=== PATIENT | female | born 1975 | race Caucasian/White ===

== ENCOUNTER → 2020-03-10 | Outpatient (CLI) | payer OTHER ==
--- NOTE | 2020-03-10 14:43 | KCIC ---
EXAMINATION: Magnetic resonance imaging (MRI) of the cervical spine without contrast 03/10/2020 1:15 PM HISTORY: Brachial neuritis. Right shoulder pain in right upper extremity numbness TECHNIQUE: Multiplanar multi-weighted MRI of the cervical spine was performed without intravenous contrast using the standard cervical spine protocol. Contrast information: None administered COMPARISON: None available. FINDINGS: Minimal retrolisthesis of C4 on C5. Vertebral bodies demonstrate normal signal intensity on all sequences. No acute fracture is identified; however, if trauma is suspected, a CT scan would be a more sensitive examination for fractures. The craniocervical junction is normal. The visualized portions of the skull base and the posterior fossa are normal. The spinal cord demonstrates normal signal intensity on all sequences. There is disc desiccation at all levels of the cervical spine with mild disc height loss at C4-C5. No soft tissue abnormality is identified. Normal signal voids are present in the vertebral arteries. C2-C3: The disk is normal in configuration. There is no facet arthropathy. There is no uncovertebral joint disease. There is no neuroforaminal stenosis. There is no spinal canal stenosis. C3-C4: The disk is normal in configuration. There is no facet arthropathy. There is no uncovertebral joint disease. There is no neuroforaminal stenosis. There is no spinal canal stenosis. C4-C5: There is a posterior disc osteophyte complex. Mild facet arthropathy. Mild uncovertebral joint disease. No neuroforaminal or spinal canal stenosis. C5-C6: Mild disc bulge. No significant facet arthropathy. No uncovertebral joint disease. No neuroforaminal or spinal canal stenosis. C6-C7: There is a posterior disc osteophyte complex asymmetric to the right with right central disc protrusion. There is no facet arthropathy. There is mild uncovertebral joint disease. There is mild neuroforaminal stenosis. There is no spinal canal stenosis. C7-T1: The disk is normal in configuration. There is no facet arthropathy. There is no uncovertebral joint disease. There is no neuroforaminal stenosis. There is no spinal canal stenosis. IMPRESSION: Mild degenerative changes of the cervical spine as described in detail above. Electronically signed by: Tiffany Saleh MD (03/10/2020 2:40 PM) [facility]
== END ==
LOC: KCIC MRI 12:56
PROVIDERS: ATTEND Physician Assistant
DX: M47.22 Other spondylosis with radiculopathy, cervical region (principal); M43.12 Spondylolisthesis, cervical region
CPT/HCPCS: 72141

== ENCOUNTER → 2020-05-01 | Outpatient (CLI) | payer OTHER ==
[~2020-05-01] MED LIST: ACET1TAB33 PO; CYCL5TAB PO; IBUP-1007 PO; PANT40TA77 PO; VORT10TA PO
== END ==
LOC: LAB 10:10
PROVIDERS: ATTEND Orthopaedic Surgery
DX: Z01.812 Encounter for preprocedural laboratory examination (principal); Z20.828 Contact with and (suspected) exposure to other viral communicable diseases
CPT/HCPCS: U0003

== ENCOUNTER 2020-05-05 08:41 | Day surgery (SDC) | payer OTHER ==
--- NOTE | 2020-05-03 13:13 | PDOC1 ---
History and Physical Date of Admission Date of Admission 05/05/2020 Identification/Chief Complaint Chief Complaint Right shoulder pain Source Source: Chart review, Patient History of Present Illness History of Present Illness 44-year-old patient here for her right shoulder pain. 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 She describes an onset of shoulder pain after a fall in September when she caught herself with her arm out on a wall. Since then, she has pain holding a gallon of milk, reaching overhead, driving, or sleeping on her side. She locates "burning" pain anteriorly that requires Tylenol, Ibuprofen, or a muscle relaxer to help her sleep. So far, she's had two cortisone injections (at the same visit) with therapy that has helped with mobility but not helped her pain. She is a smoker. The patient has dealt with this for a while now and made significant efforts in physical therapy to try and help alleviate her neck and shoulder pain. She continues to have symptoms in the right arm despite efforts feeling like this is overall not been successful albeit partially improved in her shoulder mobility with therapy. She also has pain in the right shoulder blade, numbness and tingling intermittently in the right upper extremity. Patient fell down back in September from a boat ramp with ontiveros on its surface and caught herself with her RIGHT arm under the axilla on an adjacent wall. She not iced immediate pain in the shoulder and notices a pop with movement. She also reports pain traveling down the arm to the middle and index fingers. 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 She also admits pain in the right side of her cervical spine. She denies history of MVA or trauma to the neck, shoulders. She has woken up routinely with numbness and tingling in the median nerve distribution although this is only been since the time she had her injury. She reports pain in the lateral shoulder as well and on top. She denies any history of prior injury to the upper extremity or previous carpal tunnel symptoms. Past Medical History GI: GERD Past Surgical History Past Surgical History: Cholecystectomy, Hysterectomy Family History Family History: Heart Disease, Hypertension Social History Smoke: <1 pack per day ALCOHOL: occassional Current Medications Current Medications Active Scripts Active Reported Acetaminophen-Cod #3 Tablet (Acetaminophen/Codeine Phosphate) 1 Each Tablet 1 Tab PO PRN Q6HRS PRN Cyclobenzaprine Hcl 5 Mg Tablet 5 Mg PO PRN DAILY PRN Pantoprazole Sodium (Pantoprazole Sodium) 40 Mg Tablet.dr 20 Mg PO DAILYAC Trintellix (Vortioxetine) 10 Mg Tablet 10 Mg PO DAILY Ibuprofen 600 Mg Tablet 600 Mg PO PRN Q6HRS PRN Allergies Allergies: Coded Allergies: Penicillins (Verified Allergy, Unknown, Unknown, 05/02/20) morphine (Verified Adverse Reaction, Intermediate, Nausea and Vomiting, 05/02/20) ROS Review of System Constitutional fevers Denies . CARDIOLOGY: Leg edema none. RESPIRATORY: Shortness of breath denies. GASTROENTEROLOGY: Weight gain denies. MUSCULOSKELETAL: New arthralgias denies. New Myalgias none. Muscle weakness denies. DERMATOLOGY: Rash denies. NEUROLOGY: Paresthesia/numbness denies. ENDOCRINOLOGY: Poor wound healing no. HEMATOLOGY/LYMPH: Abnormal bruising denies. ALLERGY: Positive for hives reported following iodine use as a child has not experienced since. Anaphylaxis denies. Physical Exam General: Alert, Cooperative HEENT: Atraumatic Lungs: Normal air movement Heart: RRR Abdomen: Soft Extremities: No edema, Normal pulses, Other (Gross alignment of the RIGHT shoulder is normal. Tenderness to palpation of the subacromial) Skin: No breakdown, No significant lesion Neuro: Normal tone, Sensation intact Psych/Mental Status: Mental status NL, Mood NL Images Images PROCEDURE: UPPER EXT JOINT WO CONT RIGHT EXAMINATION: MRI RIGHT SHOULDER WITHOUT IV CONTRAST CLINICAL HISTORY: FOOSH injury in September with persistent right shoulder pain and limited range of motion since then, concern for glenoid labrum tear. TECHNIQUE: Multiplanar multisequential images obtained through the shoulder without intravenous contrast. COMPARISON: Right shoulder radiographs 01/30/2020 FINDINGS: TENDONS: - Supraspinatus: Mild to moderate tendinosis without discrete tear. - Infraspinatus: Mild tendinosis without tear. - Subscapularis: Within normal limits. - Teres Minor: Within normal limits. - Biceps Tendon: The long head biceps tendon is intact and appropriately located. MUSCLES: Muscle bulk and signal intensity are within normal limits. LABRUM: Circumferential labral degeneration without discrete tear. GLENOHUMERAL JOINT: - Joint Fluid: No significant joint effusion or synovitis. - Cartilage: No full-thickness chondral defect visualized. ACROMIOCLAVICULAR JOINT: Within normal limits. BONES/MARROW: No evidence of acute fracture or suspicious marrow replacing process. OTHER: Mild thickening of the subacromial/subdeltoid bursa. IMPRESSION: Labral degeneration without discrete tear. Mild to moderate rotator cuff tendinosis without full-thickness tear. Electronically signed by: Aiden Downing DO (02/13/2020 4:32 PM) [id number] DICTATED and SIGNED BY: AIDEN DOWNING DO DATE: 02/13/201631. VTE Prophylaxis Ordered VTE Prophylaxis Devices: Yes VTE Pharmacological Prophylaxi: Yes Assessment/Plan Assessment/Plan Her report details "mild to moderate rotator cuff tendinosis" although I would lean towards classifying this as a partal tear given her MRI and described symptoms with exam. We reviewed her reports together and discussed the natural history of the condition as well as the risks, benefits, and alternatives to treatment. Given her failure of more conservative measures with continued severe pain and loss of function, my recommendation is surgery. Plan for right shoulder arthroscopy with subacromial decompression, open rotator cuff repair, and possible biceps tenodesis. We discussed the potential risks of infection, neurovascular injury, fracture, bleeding, need for revision surgery, or other potential surgical or anesthetic complications. We also discussed healing expectations including postoperative use of DonJoy sling, need for physical therapy, and refrain from overhead lifting for 3 months. I described that this is a more difficult surgery for patients and she may take up to a year to heal; more specifically, I highlighted her increased risks associated with smoking and advised she do her best to stop. All of her questions were answered and she desires to proceed with surgery. She is here today for elective right shoulder arthroscopy, subacromial decompression, likely biceps tenodesis, likely rotator cuff repair, and possible labral debridement. Justifications for Admission Other Justification LAURA CHARLES MD May 03, 2020 13:13
[~2020-05-05 08:41] MED LIST changes: +BUPIVACAINE-EPI 0.25% 30 ML VIAL KIT. INJ ONE; +BUPIVACAINE-EPI 0.25% 30 ML VIAL KIT. ONE; +CLINDAMYCIN 900MG PREMIX 50 ML IV PRN; +EPINEPHrine VIAL 30 MG/30 ML VIAL ONE; +HYDROmorphone 2 MG/ML VIAL IV PRN; +LIDOCAINE 1% PF 2 ML VIAL. ID PRN; +ONDANSETRON PF 4 MG/2 ML VIAL. IV PRN; +PROCHLORPERAZINE 10 MG/2 ML VIAL. IV PRN; +fentaNYL PF VIAL 100 MCG/2 ML VIAL IV PRN
[2020-05-05] MEDS ORDERED: SCOPOLAMINE 1.5MG PATCH. TD ONE (09:00)
[2020-05-05] MEDS ORDERED: ROCURONIUM 50 MG/5 ML VIAL. ONE (09:25)
[2020-05-05] MEDS ORDERED: fentaNYL PF VIAL 100 MCG/2 ML VIAL ONE ×3 (09:25→12:16)
[2020-05-05] MEDS: IV RINGERS,LACTATED 1000ML 1,000 ML IV SCH ×2 (09:30→12:19)
[2020-05-05] MEDS ORDERED: MIDAZOLAM HCL/PF 2 MG/2 ML VIAL. ONE (09:34)
[2020-05-05] MEDS ORDERED: DEXAMETHASONE SOD PHOS 4 MG/ML VIAL ONE (10:06)
[2020-05-05] MEDS ORDERED: ONDANSETRON PF 4 MG/2 ML VIAL. ONE (10:22)
[2020-05-05] MEDS ORDERED: PHENYLEPHRINE in 0.9% NACL PF 1 MG/10 ML SYRINGE. IV ONE (10:22)
[2020-05-05] MEDS ORDERED: PHENYLEPHRINE 10 MG/ML VIAL. ONE (10:49)
[2020-05-05] MEDS ORDERED: GLYCOPYRROLATE 1 MG/5 ML VIAL. ONE (11:23)
[2020-05-05] MEDS ORDERED: NEOSTIGMINE METHYLSULFATE 5 MG/5 ML SYRINGE. ONE (11:23)
--- NOTE | 2020-05-05 11:57 | PDOC4 ---
Operative Note Operative Note Date of Procedure: May 05, 2020 Pre-Op Diagnosis: * Traumatic incomplete tear of right rotator cuff, initial encounter - S46.011A * Impingement syndrome of right shoulder - M75.41 * Biceps tendinosis of right shoulder - M67.813 Post-Op Diagnosis: * Traumatic incomplete tear of right rotator cuff, initial encounter - S46.011A * Impingement syndrome of right shoulder - M75.41 * Biceps tendinosis of right shoulder - M67.813 * Superior glenoid labrum lesion of right shoulder, initial encounter S43.431A Procedure: * Repair of ruptured musculotendinous cuff (rotator cuff) open, acute CPT 32025 * Arthroscopy, shoulder, surgical decompression of subacromial space, with partial acromioplasty CPT 01298 * Arthroscopy, shoulder, surgical debridement, extensive including torn superior labrum (SLAP lesion) and biceps tendon CPT 98721 Surgeon: Laura hCarles MD Option Trader: CLAUDIA Moss Anesthesia: General EBL: 50 mL Specimens Obtained: none Complications: none Drains: none Findings: Severe tendinitis and high-grade partial-thickness tearing of the dis sujata supraspinatus visualized both from the articular and bursal aspects. Minimal bicipital tenosynovitis, amenable to arthroscopic debridement. Impingement syndrome with very tight subacromial space initially, decompressed with arthroscopic subacromial decompression to adequate space available for the cuff and cuff repair. 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 She describes an onset of shoulder pain after a fall in September when she caught herself with her arm out on a wall, slipping on a wet, mossy boat ramp. Since then, she has pain holding a gallon of milk, reaching overhead, driving, or sleeping on her side. She locates "burning" pain anteriorly that requires Tylenol, Ibuprofen, or a muscle relaxer to help her sleep. So far, she's had two cortisone injections and physical therapy that has helped with mobility but not helped her pain. She is a smoker. Given her failure of more conservative measures with continued severe pain and loss of function, my recommendation is surgery. We discussed the potential risks of infection, neurovascular injury, bleeding, stiffness, retear, persistent pain or weakness, need for revision surgery, or other potential surgical or anesthetic complications. We also discussed healing expectations including postoperative use of DonJoy sling, need for physical therapy, and refrain from overhead lifting for 3 months. I described that this is a more difficult surgery than most surgeries, and she may take up to a year to heal. More specifically, I highlighted her increased risks of slow healing, infection or other complications associated with smoking and advised she do her best to stop. All of her questions were answered and she desires to proceed with surgery. She is here today for elective right shoulder arthroscopy, subacromial decompression, likely biceps tenodesis, likely rotator cuff repair, and possible labral debridement. Procedure in Detail: The patient was identified in the preoperative holding area. The correct right shoulder was marked by me. The patient was taken to the operating room where general anesthesia was used. The patient was positioned in the beachchair position with the bony prominences well-padded and the eyes protected. Preoperative antibiotics were given intravenously. A timeout procedure was performed. Under sterile technique 25 mL of bupivacaine with epinephrine was injected into the subacromial space and glenohumeral joint. The limb was then thoroughly prepared with surgical ChloraPrep solution circumferentially. Sterile waterproof arthroscopy shoulder drapes were applied, along with an impervious stockinette over the arm, and a Spider arm chamorro. Posterior, posterolateral, lateral, and anterior arthroscopy portals were used. The glenohumeral joint showed normal articular surfaces. The biceps tendon was palpated with the shaver, and retracted into the joint, and all of the biceps tendon distally appears normal, however at the most proximal attachment at the superior labrum, there is tendonitis with frayed fibers over a 1 cm length at the most proximal aspect. I did arthroscopic debridement of about 15% of the biceps tendon thickness over that 1 cm length, and it did not appear that biceps tenodesis was warranted. There is a prominent anterior labrum fragment that appears torn, almost as if this was a torn [place] complex or other anatomical variant which is now torn. There is no shoulder instability or evidence of dislocation. I did shaving debridement of the fragment of the middle glenohumeral ligament and/or SLAP lesion labrum fragment which was torn. The distal portion of the supraspinatus is partially detached from the humeral head, and the footprint is partially exposed. Shaving debridement was performed of the undersurface of the cuff. A marker suture was placed. I had performed arthroscopic debridement of superior labrum lesion, biceps tendon, and rotator cuff. The subacromial space was entered. The anterior acromion was prominent. The [employer] Edge thermal energy bipolar device was used for hemostasis and to resect the undersurface periosteum exposing the prominent anterior acromion. A 6.0 mm oval fer was used for the acromioplasty. A three-stage acromioplasty was performed, with the fer first laterally, removing anterior acromion, using the distal clavicle as a reference. The fer was then placed in the posterior portal, and a cutting block technique was used for smoothing of the lateral edge of the acromion tapering the anterior acromion into a Bigliani type I configuration. Final smoothing of the acromion was performed with the fer again in the lateral portal, and direct arthroscopic visualization. The previously very tight subacromial space was now nicely decompressed. This completes CPT 63636, subacromial decompression and acromioplasty. The arthroscopic instruments were removed. Outer gloves were changed. The skin was prepared a second time with ChloraPrep solution. An anterior lateral deltoid raphae splinting incision was used. Care was made not to extend more than 4 cm distally so as to avoid axillary nerve injury. Self-retaining retractors were placed. My triage assistant used an [facility] retractor in addition to the self- retaining retractors. The biceps tendon was palpated in the intertubercular sulcus, and is normal. The palpation of the rotator cuff shows a partial-thickness tear of the anterior supraspinatus. I mobilized the cuff using a 15 blade scalpel, to complete the tear and expose the footprint. The bone awl was used to perforate the footprint with deep bone channels in multiple locations, and create a "crimson duvet" at the previously sclerotic footprint. The 2 medial 4.75 mm swivel lock anchors with swaged suture tapes were used. All of the medial sutures were deployed with Arthrex scorpion device, about 16 mm from the distal edge of the cuff. The medial mattress sutures were secured and tied, and Vernon my triage assistant held tension reducing the cuff while the sutures were tied. The swaged suture tapes were then trimmed, the tapes were crossed, and the 2 lateral row anchors were now placed at the lateral aspect of the footprint for secure speed bridge repair. The additional sutures from the lateral row anchors was used posteriorly to secure the edges of the dog ear of the tear. A secure and tension-free repair was obtained. The shoulder was taken through a range of motion, and the repair security confirmed. Copious saline irrigation was used. I closed the fascia of the deltoid with #0 Vicryl suture in a [id number] fashion. My triage assistant Angel then completed the subcutaneous closure with 2-0 Vicryl. He repaired the skin with #3-0 Prolene. He injected an additional 30 mL of bupivacaine with epinephrine. He placed Xeroform and bulky sterile dressings. He then applied a DonJoy UltraSling. There were no apparent complications. Needle and sponge counts were correct. LAURA CHARLES MD May 05, 2020 11:57
[2020-05-05] MEDS: fentaNYL PF VIAL 100 MCG/2 ML VIAL IV PRN ×2 (12:19→13:01)
[2020-05-05] MEDS ORDERED: PROCHLORPERAZINE 10 MG/2 ML VIAL. ONE (12:58)
[2020-05-05] MEDS ORDERED: oxyCODONE/APAP 5/325 1 TAB TABLET PO PRN ×2 (13:00→13:15)
[2020-05-05] MEDS ORDERED: KETOROLAC 30 MG/ML VIAL. IVP ONE (13:15)
[2020-05-05 13:45] VITALS: BP 100/60
== END 2020-05-05 14:18 | disposition home or self-care (01) ==
LOC: SURG 08:41
PROVIDERS: ATTEND Orthopaedic Surgery
DX: S46.011A Strain of muscle(s) and tendon(s) of the rotator cuff of right shoulder, initial encounter (principal); M75.41 Impingement syndrome of right shoulder; K21.9 Gastro-esophageal reflux disease without esophagitis; M67.813 Other specified disorders of tendon, right shoulder; Z88.0 Allergy status to penicillin; Z88.6 Allergy status to analgesic agent; Z90.49 Acquired absence of other specified parts of digestive tract; Z90.710 Acquired absence of both cervix and uterus; Z82.49 Family history of ischemic heart disease and other diseases of the circulatory system; X58.XXXA Exposure to other specified factors, initial encounter; Y93.89 Activity, other specified; Y92.89 Other specified places as the place of occurrence of the external cause; Y99.8 Other external cause status
CPT/HCPCS: 23410; 29823; 29826; C1713; J0171; J0780; J1100; J1885; J2250; J2370; J2405; J2710; J3010; J3490; J7120; A4623

== ENCOUNTER → 2020-12-09 | Outpatient (CLI) | payer OTHER ==
[~2020-12-09] MED LIST changes: -BUPIVACAINE-EPI 0.25% 30 ML VIAL KIT. INJ ONE; -BUPIVACAINE-EPI 0.25% 30 ML VIAL KIT. ONE; -CLINDAMYCIN 900MG PREMIX 50 ML IV PRN; -EPINEPHrine VIAL 30 MG/30 ML VIAL ONE; -HYDROmorphone 2 MG/ML VIAL IV PRN; -LIDOCAINE 1% PF 2 ML VIAL. ID PRN; -ONDANSETRON PF 4 MG/2 ML VIAL. IV PRN; -PROCHLORPERAZINE 10 MG/2 ML VIAL. IV PRN; -fentaNYL PF VIAL 100 MCG/2 ML VIAL IV PRN
--- NOTE | 2020-12-09 15:47 | RAD ---
EXAM: Fluoroscopic guided left shoulder aspiration. HISTORY: Persistent pain status post rotator cuff repair. TECHNIQUE: The risks of the procedure were discussed with the patient and written and verbal consent was obtained. A time out was performed. Fluoroscopic imaging of the left was performed and a site ove rlying the joint space was selected for needle entry. The skin overlying this region was sterilely pr epped, draped and infiltrated with 1% lidocaine. A spinal needle was then advanced into the joint spa ce with fluoroscopic guidance. A small amount of gas was injected into the joint space to confirm nee dle tip position. Contrast was not administered due to a reported contrast allergy. No fluid was obtained with aspiration attempts. Therefore, a small amount of saline was injected into the joint space and reaspirated. This was submitted to the laboratory for analysis. The needle was r emoved and a sterile measures placed at the needle entry site. A single fluoroscopic image is obtaine d. The total fluoroscopy time was 0.3 minutes. IMPRESSION: Fluoroscopic guided left shoulder aspiration. No fluid was obtained with aspiration, desp ite appropriate needle tip positioning confirmed with image guidance. Therefore, a small amount of sa line was administered and aspirated and submitted to the laboratory for requested analysis. Electronically signed by: Rebecca Moreno MD (12/09/2020 3:44 PM) [id number]
== END | disposition home or self-care (01) ==
LOC: RAD 13:34
PROVIDERS: ATTEND Orthopaedic Surgery Sports Medicine
DX: M25.511 Pain in right shoulder (principal); K21.9 Gastro-esophageal reflux disease without esophagitis; M19.90 Unspecified osteoarthritis, unspecified site; F41.9 Anxiety disorder, unspecified; Z90.49 Acquired absence of other specified parts of digestive tract; Z90.710 Acquired absence of both cervix and uterus; Z98.890 Other specified postprocedural states; Z79.899 Other long term (current) drug therapy; Z87.891 Personal history of nicotine dependence; Z88.0 Allergy status to penicillin; Z88.6 Allergy status to analgesic agent; Z91.041 Radiographic dye allergy status
CPT/HCPCS: 20610; 77002; 87071; 87075